=== PATIENT | male | born 1940 | race Caucasian/White ===

== ENCOUNTER 2022-11-15 16:37 | Inpatient (IN) | payer MEDICARE, BC ==
[~2022-11-15 16:37] MED LIST: Iopamidol-370 76% 500 ML MDV (1 ML CHARGE) ONE
[2022-11-15 17:31] LABS: Actual Bicarbonate (HCO3v) 25.1 mEq/L (22-28); Analyzer IN Cardio ER; Base Excess 1.7 mEq/L (-2.0 to +3.0); Calcium, Ionized (venous) 1.03 mmol/L (1.16-1.32); Chloride (VBG) 101 mmol/L (98-106); Hematocrit-VBG 44 % (42.0-52.0); Hemoglobin (Hb) 14.8 g/dL (12.6-17.4); Potassium (VBG) 4.56 mmol/L (3.70-5.30); Sodium 134.5 mmol/L (133-146); pH (venous) 7.463 (7.32-7.43)
[2022-11-15 17:33] LABS: #Basophils 0.1 thou/uL (0.0-0.2); #Eosinphils 0.2 thou/uL (0.0-0.7); #Monocytes 1.3 thou/uL (0.11-0.59); #Neutrophils 10.1 thou/uL (1.40-6.50); %Basophils 0.7 % (0.0-1.0); %Eosinophils 1.2 % (0.0-10.0); %Lymphocytes 8.7 % (21.0-51.0); %Monocytes 9.9 % (0.0-10.0); %Neutrophils 78.9 % (42.0-75.0); Hemoglobin 13.7 g/dL (14.0-18.0); Mean Corpuscular HGB CONC 33.9 g/dL (32.0-36.0); Mean Corpuscular Volume 97.3 fl (78.0-98.0); Mean Platelet Volume 11.6 fL (7.4-10.4); Platelet Count 153 10x3/uL (130-400); RBC Distribution Width 12.8 % (11.5-14.5); Red Blood Cell (RBC) Count 4.15 mill/uL (4.70-6.10); White Blood Cell (WBC) Count 12.8 10x3/uL (4.8-10.8)
[2022-11-15] MEDS ORDERED: Famotidine/PF 20 mg/2ml Vial ONE (17:42)
[2022-11-15] MEDS ORDERED: Ondansetron PF 4 MG/2 ML Vial ONE (17:42)
[2022-11-15 17:50] LABS: Prothrombin Time 128.3 sec (12.0-14.7)
[2022-11-15 17:52] LABS: Bilirubin Negative (Negative); Blood, Urine Negative (Negative); Clarity Clear (Clear); Glucose, Urine (Dipstick) Normal (Negative); Ketone, Urine Negative (Negative); Leukocyte Negative Leu/uL (Negative); Nitrite Negative (Negative); Protein, Urine (Dipstick) Negative (Neg-Trace); RBC/HPF 0-3 HPF (0-3); Specific Gravity, Urine 1.007 (1.002-1.036); Urobilinogen Normal mg/dL (Less than 2); WBC/HPF None Seen HPF (0-3); pH, Urine 6.5 (5.0-9.0)
[2022-11-15 17:53] LABS: Bacteria/HPF None Seen HPF (None Seen); CAUTI Indications for Culture Alt mental st,lethar; Squamous Epithelial 0-3 HPF (0-3)
[2022-11-15 17:56] LABS: Urine Culture Reflex No No
[2022-11-15 17:57] LABS: ALT (SGPT) 17 U/L (8-55); AST (SGOT) 46 U/L (5-34); Albumin 4.2 g/dL (3.4-4.8); Alkaline Phosphatase 70 U/L (40-110); Anion Gap 14 mmol/L (10-20); BUN (Urea Nitrogen) 10 mg/dL (8.4-25.7); Bilirubin, Total 0.8 mg/dL (0.2-1.2); Calc. Creatinine Clearance 0 mL/min (70-130); Calcium 9.3 mg/dL (7.8-10.44); Carbon Dioxide 24 mmol/L (23-31); Chloride 102 mmol/L (98-107); Estimated GFR 87; Globulin 3.1 g/dL (2.4-3.5); Glucose 178 mg/dL (83-110); Lipase 9 U/L (8-78); Potassium 3.7 mmol/L (3.5-5.1); Protein, Total 7.3 g/dL (5.8-8.1); Sodium 136 mmol/L (136-145)
[2022-11-15 18:03] LABS: INR-International Normal Ratio 16.9
[2022-11-15 18:05] LABS: PTT Greater than 250.0 sec (22.9-36.1)
[2022-11-15 18:17] LABS: Manual Diff?? YES
[2022-11-15] MEDS ORDERED: LORazepam 2 MG/ML SYR.(CARPUJECT) ONE (18:21)
[2022-11-15 18:38] LABS: INR-International Normal Ratio 1.1; PTT 29.6 sec (22.9-36.1)
[2022-11-15 18:47] LABS: Band 2 % (5-11); Burr Cells SLIGHT = 2-5 cells HPF (0-1); CellaVision Operator ID LAB.KB; Eosinophils 3 % (0-10); Lymphocytes 6 % (21-51); Monocytes 9 % (0-10); Neutrophil 70 % (42-75); Ovalocytes SLIGHT = 2-5 cells HPF (0-1); Platelet Adequacy Comment Platelets Normal; Polychromasia SLIGHT = 2-3 cells HPF (0-2); Reactive Lymphocytes 8 % (0-10); Total Cell Count 98
[2022-11-15] MEDS ORDERED: Aspirin Chewable 81 MG TAB ONE (20:33)
[2022-11-15] MEDS ORDERED: Ondansetron PF 4 MG/2 ML Vial IVP PRN (21:01)
[2022-11-15] MEDS ORDERED: Ondansetron ODT 4 MG TAB PO PRN (21:01)
[2022-11-15] MEDS ORDERED: Calcium Carbonate 500 MG ChewTAB PO PRN (21:01)
[2022-11-15] MEDS ORDERED: Acetaminophen 325 MG TAB PO PRN (21:01)
[2022-11-16 01:01] LABS: Troponin I 0.112 ng/mL (< 0.028)
[2022-11-16 01:57] VITALS: BMI 23.6
[2022-11-16 05:09] LABS: #Basophils 0.1 thou/uL (0.0-0.2); #Neutrophils 8.4 thou/uL (1.40-6.50); %Basophils 0.5 % (0.0-1.0); %Eosinophils 0.1 % (0.0-10.0); %Lymphocytes 8.6 % (21.0-51.0); %Monocytes 9.9 % (0.0-10.0); %Neutrophils 80.5 % (42.0-75.0); Hemoglobin 12.6 g/dL (14.0-18.0); Mean Corpuscular HGB CONC 32.6 g/dL (32.0-36.0); Mean Corpuscular Hemoglobin 32.3 pg (27.0-31.0); Mean Platelet Volume 11.8 fL (7.4-10.4); Platelet Count 169 10x3/uL (130-400); RBC Distribution Width 12.9 % (11.5-14.5); White Blood Cell (WBC) Count 10.5 10x3/uL (4.8-10.8)
[2022-11-16] MEDS ORDERED: Labetalol HCl 100 MG/20 ML VIAL SLOW IVP SCH (06:00)
[2022-11-16 06:04] LABS: Anion Gap 14 mmol/L (10-20); BUN (Urea Nitrogen) 9 mg/dL (8.4-25.7); Calc. Creatinine Clearance 80 mL/min (70-130); Calcium 9.2 mg/dL (7.8-10.44); Carbon Dioxide 27 mmol/L (23-31); Chloride 103 mmol/L (98-107); Estimated GFR 89; Glucose 111 mg/dL (83-110); Potassium 3.7 mmol/L (3.5-5.1); Sodium 140 mmol/L (136-145)
[2022-11-16 07:13] LABS: Troponin I 0.138 ng/mL (< 0.028)
[2022-11-16] MEDS ORDERED: Famotidine/PF 20 mg/2ml Vial SLOW IVP SCH (09:00)
[2022-11-16] MEDS ORDERED: Lisinopril 10 MG TAB PO SCH (09:00)
[2022-11-16] MEDS ORDERED: Tamsulosin HCl 0.4 MG CAP PO SCH (11:00)
[2022-11-16] MEDS ORDERED: Sodium Chloride 0.9% 1,000 ML IV SCH (11:15)
[2022-11-16] MEDS: Famotidine 20 MG TAB PO SCH ×2 (17:25→21:00)
[2022-11-16] MEDS ORDERED: Rosuvastatin 10 MG TAB PO SCH (21:00)
[2022-11-16] MEDS: Rosuvastatin 20 MG TAB PO SCH (21:01)
[2022-11-17 05:13] LABS: Hemoglobin A1c 5.8 % (4.0-6.0)
[2022-11-17 05:53] LABS: Cardiac Risk 2.1 (Less than 4.5)
[2022-11-17] MEDS: Amlodipine 10 MG TAB PO SCH (10:36)
[2022-11-17] MEDS: Losartan 25 MG TAB PO SCH (10:37)
[2022-11-17] MEDS: Famotidine 20 MG TAB PO SCH ×2 (10:37→21:22)
[2022-11-17 11:45] LABS: Syphilis Antibody Nonreactive (Nonreactive); Syphilis Antibody Index 0.06 S/CO (<1.00 Non-Reactive)
[2022-11-17] MEDS ORDERED: Iopamidol-370 76% 500 ML MDV (1 ML CHARGE) ONE (12:02)
[2022-11-17 17:01] LABS: CCP IgG Antibody 1.3 EliAU/mL (<7 Negative); Rheumatoid Factor IgA Antibody 4.2 IU/mL (<14 Negative); Rheumatoid Factor IgM Antibody 0.7 IU/mL (<3.5 Negative)
[2022-11-17] MEDS: Rosuvastatin 20 MG TAB PO SCH (21:22)
[2022-11-17] MEDS: Tamsulosin HCl 0.4 MG CAP PO SCH (21:22)
[2022-11-18] MEDS: Amlodipine 10 MG TAB PO SCH (10:50)
[2022-11-18] MEDS: Losartan 25 MG TAB PO SCH (10:50)
[2022-11-18] MEDS: Famotidine 20 MG TAB PO SCH ×2 (10:50→20:39)
[2022-11-18] MEDS: Clopidogrel Bisulfate 75 MG TAB PO SCH (10:50)
[2022-11-18] MEDS: Aspirin Chewable 81 MG TAB PO SCH (10:51)
[2022-11-18] MEDS: Tamsulosin HCl 0.4 MG CAP PO SCH (20:39)
[2022-11-18] MEDS: Rosuvastatin 20 MG TAB PO SCH (20:39)
[2022-11-18] MEDS: Senokot S 8.6-50 MG TAB PO PRN (20:44)
[2022-11-19] MEDS: Aspirin Chewable 81 MG TAB PO SCH (09:06)
[2022-11-19] MEDS: Clopidogrel Bisulfate 75 MG TAB PO SCH (09:06)
[2022-11-19] MEDS: Losartan 25 MG TAB PO SCH (09:06)
[2022-11-19] MEDS: Amlodipine 10 MG TAB PO SCH (09:06)
[2022-11-19] MEDS: Famotidine 20 MG TAB PO SCH (09:07)
[2022-11-19] MEDS: Senokot S 8.6-50 MG TAB PO PRN (09:10)
[2022-11-19] MEDS ORDERED: Milk Of Magnesia 30 ML UDCUP PO SCH (10:45)
[2022-11-19 12:02] VITALS: BP 164/80; TEMP 97.3
== END 2022-11-19 14:45 | DRG 64 ==
LOC: ERS 16:37 → ERHOLD 20:35 → 2NO 11-16 01:25 → OBSVTOIN 11-16 12:59
PROVIDERS: ADMIT Student in an Organized Health Care Education/Training Program; ATTEND Hospitalist
DX: I63.541 Cerebral infarction due to unspecified occlusion or stenosis of right cerebellar artery (principal); G93.41 Metabolic encephalopathy; J96.01 Acute respiratory failure with hypoxia; I61.9 Nontraumatic intracerebral hemorrhage, unspecified; G11.9 Hereditary ataxia, unspecified; I10 Essential (primary) hypertension; E78.5 Hyperlipidemia, unspecified; R77.8 Other specified abnormalities of plasma proteins; E78.00 Pure hypercholesterolemia, unspecified; R33.9 Retention of urine, unspecified; Z96.642 Presence of left artificial hip joint; Z79.899 Other long term (current) drug therapy; Z79.82 Long term (current) use of aspirin
CPT/HCPCS: 36415; 36416; 51701; 70496; 70498; 70551; 71045; 71275; 74177; 80048; 80053; 80061; 81001; 82553; 82805; 83010; 83036; 83520; 83605; 83615; 83690; 84484; 85025; 85379; 85610; 85730; 86200; 86780; 86850; 86900; 86901; 87040; 87086; 93005; 93306; 93970; 96361; 96372; 96374; 96375; 96376; G0378; J1650; J2060; J2405; J7050; Q9967; S0028

== ENCOUNTER 2024-04-30 12:37 | Emergency (ER) | payer MEDICARE, BC ==
[2024-04-30] MEDS ORDERED: Bacitracin 1 PK ONE (13:41)
== END 2024-04-30 15:24 | disposition home or self-care (01) ==
LOC: ERS 12:37
DX: S01.112A Laceration without foreign body of left eyelid and periocular area, initial encounter (principal); I10 Essential (primary) hypertension; E78.00 Pure hypercholesterolemia, unspecified; Z79.899 Other long term (current) drug therapy; Z79.82 Long term (current) use of aspirin; Z86.73 Personal history of transient ischemic attack (TIA), and cerebral infarction without residual deficits; W01.10XA Fall on same level from slipping, tripping and stumbling with subsequent striking against unspecified object, initial encounter
CPT/HCPCS: 12011; 70450; 70486; 72125